=== PATIENT | male | born 1955 | race Caucasian/White ===

== ENCOUNTER → 2021-04-19 | Outpatient (CLI) | payer OTHER ==
[~2021-04-19] MED LIST: PROM6.25SY; SULFAMETHOXAZOLE; TAMS.4ER
== END | disposition home or self-care (01) ==
LOC: LAB SHORT 08:13
DX: D17.23 Benign lipomatous neoplasm of skin and subcutaneous tissue of right leg (principal)
CPT/HCPCS: 88305